=== PATIENT | male | born 1950 | race Caucasian/White ===

== ENCOUNTER 2020-02-28 10:28 | Emergency (ER) | payer SELFPAY ==
[2020-02-28 10:48] VITALS: BP 189/106; PULSE 71; RESP 16; TEMP 36.5; O2SAT 99
--- NOTE | 2020-02-28 11:31 | ED.UPPEXIN ---
HPI - Extremity Injury (Upper) <GERALD Ramirez - Last Filed: 02/28/20 11:56> General Chief Complaint: Extremity Injury, Upper Stated Complaint: left elbow hurts Time Seen by Provider: 02/28/20 10:30 Source: patient Mode of arrival: Ambulatory Limitations: no limitations History of Present Illness HPI narrative: This is a 69-year-old male, nonsmoker, who presents to ED with nontraumatic left elbow pain since when he woke up yesterday morning. Patient states it feels as slept wrong. Patient states pain increases with using left arm, lifting, movement. Patient right dominant hand. He denies swelling, rash, numbness/weakness, injury to affected arm, or fever. Patient reports had moved boxes and increased using his arms. Patient denies similar pain on affected arm. Patient reports pain actually improves when he bend left arm. Patient denies chronic medical problems and reports no primary care physician. Patient had taken aspirin last night without much effect. Related Data Home Medications Medication Instructions Recorded Confirmed No Known Home Medications 02/28/20 02/28/20 Allergies Allergy/AdvReac Type Severity Reaction Status Date / Time No Known Drug Allergies Allergy Verified 02/28/20 10:53 Review of Systems <GERALD Ramirez - Last Filed: 02/28/20 11:56> Review of Systems Narrative: General: Denies fever, chills, fatigue, malaise, sweats. HEENT: Denies sinus pain, ear pain, sore throat, difficulty swallowing, dizziness. Respiratory: Denies dyspnea, cough, wheezing, hemoptysis, sputum. Cardiovascular: Denies chest pain, palpitations, orthopnea, edema. Gastrointestinal: Denies nausea, vomiting, abdominal pain, diarrhea, constipation, melena. : Denies dysuria, frequency, incontinence, hematuria, urinary retention. Musculoskeletal: See HPI Skin: Denies rash, skin lesions, or other. Neurologic: Denies weakness, headache, numbness, change in speech, confusion, seizures, incoordination. Psychiatric: No concerning psychosocial issues. 12-point review of systems is negative except for those stated above. Patient History <GERALD Ramirez - Last Filed: 02/28/20 11:56> Medical History Shingles (Acute) Surgical History No pertinent past surgical history (Acute) Social History Smoking Status: Never smoker Smoking Status: Never smoker alcohol intake frequency: a few times a week Substance Use Type: marijuana Exam <GERALD Ramirez - Last Filed: 02/28/20 11:56> Narrative Exam Narrative: General appearance: well developed, well nourished, in no acute distress. Head: normocephalic, atraumatic, no scalp lesions, non-tender. ENT: Hearing grossly intact. Nose without bleeding, purulent discharge. Mucous membrane moist, no mucosal lesion. Airway patent. Neck/Thyroid: neck supple, full range of motion, no visible masses or meningeal signs. No JVD, non-tender without lymphadenopathy. Skin: no suspicious rashes, lesions over visible areas. Warm and dry and appropriate color for ethnicity. Heart: no clubbing, no cyanosis, no edema. Lungs: Breathing even and unlabored. No stridor. No accessory muscles used. Able to speak in full sentences. Chest: normal shape and expansion. Abdomen: non-obese, non-distended. Neurologic: alert and oriented. Cognitive exam, PAY AGENT and PNS grossly intact on informal exam. Psych: good eye contact, normal affect. Initial Vital Signs Initial Vital Signs: Vital Signs Temperature 97.7 F 02/28/20 10:48 Pulse Rate 71 02/28/20 10:48 Respiratory Rate 16 02/28/20 10:48 Blood Pressure 189/106 H 02/28/20 10:48 Pulse Oximetry 99 02/28/20 10:48 Extrem Right upper extremity: normal to inspection Left upper extremity: normal to inspection, normal capillary refill, elbow/forearm Details: normal to inspection, tenderness Location: of the medial epicondyle, abnormal ROM Details: pain with active ROM and pain with passive ROM and distal pulses intact; no swelling, no unusual warmth, no abrasions, no lacerations, no ecchymosis, no crepitus, no foreign bodies and no deformity, wrist Details: normal to inspection and normal vascular exam and hand Details: normal to inspection and normal capillary refill; ROM limited, no cyanosis, no edema and joint enlargement noted <DO Cassie Davison Last Filed: 02/28/20 12:06> Initial Vital Signs Initial Vital Signs: Vital Signs Temperature 97.7 F 02/28/20 10:48 Pulse Rate 71 02/28/20 10:48 Respiratory Rate 16 02/28/20 10:48 Blood Pressure 189/106 H 02/28/20 10:48 Pulse Oximetry 99 02/28/20 10:48 Scores <GERALD Ramirez - Last Filed: 02/28/20 11:56> GCS Rubi coma scale eye opening: Spontaneous Rubi coma scale verbal response: Orientated Bill[place] coma scale motor response: Obey commands Billings coma scale total score: 15 Course <GERALD Ramirez - Last Filed: 02/28/20 11:56> Orders Ordered: Discontinued Medications Ibuprofen (Advil) 400 mg PO NOW ONE Stop: 02/28/20 11:26 Last Admin: 02/28/20 11:45 Dose: 400 mg Documented by: PETERSON Vital Signs Vital signs: Vital Signs - 8 hr 02/28/20 10:48 02/28/20 11:57 Temperature 97.7 F Pulse Rate 71 78 Respiratory Rate 16 16 Blood Pressure 189/106 H 160/96 H Pulse Oximetry 99 98 <DO Cassie Davison Last Filed: 02/28/20 12:06> Orders Ordered: Discontinued Medications Ibuprofen (Advil) 400 mg PO NOW ONE Stop: 02/28/20 11:26 Last Admin: 02/28/20 11:45 Dose: 400 mg Documented by: PETERSON Vital Signs Vital signs: Vital Signs - 8 hr 02/28/20 10:48 02/28/20 11:57 Temperature 97.7 F Pulse Rate 71 78 Respiratory Rate 16 16 Blood Pressure 189/106 H 160/96 H Pulse Oximetry 99 98 MDM - Extremity Injury (Upper) <GERALD Ramirez - Last Filed: 02/28/20 11:56> Differential Diagnosis Differential diagnosis: Likely other (Elbow pain, tendinitis, bursitis) Medical Records Attestation: I reviewed the patient's medical records. MDM Narrative Medical decision making narrative: Physical exam is not consistent with bursitis and there was no swelling, warmth, decreasing sensation, rash, or fever. There was decrease active and passive ROM due to discomfort. No x-ray was obtained today since patient denies injury to left arm or trauma. Distal pulse and sensation is intact in left arm. It is likely patient has tendinitis and will treated with RICE therapy for with Maycol wrap application on affected elbow and NSAIDS. Patient advised to elect primary care physician to follow-up on elevated blood pressure. Return precautions were discussed with the patient and patient verbalized understanding and agreement with the treatment plan. Discharge Plan Departure Patient Disposition: Home Clinical Impression: Left elbow tendinitis Hypertension Qualifiers: Hypertension type: unspecified Qualified Code(s): I10 - Essential (primary) hypertension Discharge Date/Time: 02/28/20 11:58 Activity Restrictions/Additional Instructions: You have been diagnosed with [left elbow pain. It is likely from elbow tendinitis and elevated blood pressure]. What to do: *Take your medications as directed. You can use [id number] ibuprofen/Advil/Motrin which can decrease inflammation and help with pain. Please rest affected elbow, use cool pack for next 48 hours, use Maycol wrap on affected elbow to prevent excessive flexing especially during sleep. *Follow up with your primary care provider in 2-3 days, call for an appointment. Let them know you were seen in the ED and that we asked you to be seen in follow up. I have included [facility] contact information. You have elevated blood pressure in ED. *Return to ED if you have any new, worsening, or concerning symptoms, such as [fever, rash, increasing pain, numbness tingling, weakness, chest pain, breathing difficulty or any acute concerns]. Prescriptions: No Action No Known Home Medications RF: 0 Referrals: [facility] [Outside] <Andrés Norman, DO - Last Filed: 02/28/20 12:06> Cosign ED Attending Cosbryantature Attestation: Dr Norman Co-Sign Statement: I was available for consultation during this patient's emergency department visit. This chart is signed by myself for administrative purposes only. I did not have direct contact with this patient during this visit. They were seen independently by the APC.
[2020-02-28] MEDS: IBUPROFEN 400 MG TABLET PO (11:45)
[2020-02-28 11:57] VITALS: BP 160/96; PULSE 78; RESP 16; O2SAT 98
== END 2020-02-28 11:58 | disposition home or self-care (01) ==
PROVIDERS: Emergency Provider Nurse Practitioner Family
DX: M77.8 Other enthesopathies, not elsewhere classified (principal); I10 Essential (primary) hypertension
CPT/HCPCS: 99282; 99283